=== PATIENT | male | born 1990 | race Caucasian/White ===

== ENCOUNTER 2024-01-03 17:01 | Inpatient (IN) | payer SELFPAY ==
[2024-01-03] VITALS (10 sets, daily range): BP systolic 128–174; BP diastolic 76–107; PULSE 87–94; RESP 18–20; TEMP 98.1
[~2024-01-03] VITALS: Ht 182.9 cm; Wt 130.0 kg
[2024-01-03] MEDS: LABETALOL HCL 5 MG/ML 20 ML VIAL IVP ONE ×3 (17:16→18:33)
[2024-01-03 17:35] LABS: EOSINOPHILS % (AUTO) 0.4 % (1.0-6.0); HEMATOCRIT 46.9 % (41-53); HEMOGLOBIN 15.4 g/dL (13.5-17.5); LYMPHOCYTES # (AUTO) 2.1 K/uL (1.0-4.8); LYMPHOCYTES % (AUTO) 18.9 % (22.0-44.0); MEAN CORPUSCULAR HEMOGLOBIN 26.7 pg (26.0-34.0); MEAN CORPUSCULAR HGB CONC 32.9 G/dL (31.0-37.0); MEAN CORPUSCULAR VOLUME 81 fL (80-100); MONOCYTES # (AUTO) 1.1 K/uL (0.1-1.0); MONOCYTES % (AUTO) 9.6 % (2.0-9.0); NEUTROPHILS # (AUTO) 7.9 K/uL (1.8-7.7); NEUTROPHILS % (AUTO) 70.1 % (40.0-70.0); PLATELET COUNT (AUTO) 274 K/uL (150-450); RED BLOOD CELL COUNT(AUTO) 5.79 MIL/uL (4.50-5.90); RED CELL DISTRIBUTION WIDTH 13.2 % (11.5-14.5); WHITE BLOOD COUNT (AUTO) 11.3 K/uL (4.5-11.0)
[2024-01-03 17:43] LABS: CREATININE 1.44 mg/dL (0.60-1.30); POTASSIUM 3.1 mmol/L (3.5-5.1)
[2024-01-03 17:48] LABS: PROTHROMBIN TIME 10.7 SEC (9.4-11.6)
[2024-01-03 17:52] LABS: ALCOHOL, BLOOD (SERUM) < 3 mg/dL (0-10)
[2024-01-03 17:55] LABS: LACTIC ACID 2.4 mmol/L (0.4-2.0)
[2024-01-03 17:56] LABS: ALBUMIN 3.9 g/dL (3.4-5.0); BILIRUBIN,TOTAL 0.8 mg/dL (0.1-1.0); TOTAL PROTEIN, SERUM 7.5 g/dL (6.4-8.2)
[2024-01-03 18:01] LABS: COVID AG,FIA SOURCE NASAL SWAB
[2024-01-03 18:11] LABS: TROPONIN I-HIGH SENSITIVITY 71 ng/L (<76)
[2024-01-03 18:23] LABS: SARS-COV2 (COVID) ANTIGEN,FIA Negative (Negative)
[2024-01-03] MEDS ORDERED: ACETAMINOPHEN 325 MG TABLET PO PRN (20:15)
[2024-01-03] MEDS ORDERED: POTASSIUM CHL 10 MEQ/WATER 50 ML IV PRN (20:15)
[2024-01-03] MEDS ORDERED: ONDANSETRON HCL 4 MG/2 ML VIAL IVP PRN (20:15)
[2024-01-03] MEDS ORDERED: MAGNESIUM SULFATE 2 GM/WATER 50 ML IV PRN (20:15)
[2024-01-03] MEDS ORDERED: MAGNESIUM OXIDE 400 MG TABLET PO PRN (20:15)
[2024-01-03] MEDS ORDERED: NiCARDipine HCL 25 MG in DEXTROSE 5%-WATER 240 ML IV PRN (20:15)
[2024-01-03] MEDS ORDERED: MAGNESIUM SULFATE 4 GM/WATER 100 ML IV PRN (20:15)
[2024-01-03] MEDS: DOCUSATE SODIUM 100 MG CAPSULE PO SCH (20:39)
[2024-01-03] MEDS: POTASSIUM CHLORIDE 20 MEQ ER TABLET PO PRN (20:43)
[2024-01-03] MEDS: NITROGLYCERIN 2% (1 GM=INCH) OINTMENT PACKET TP SCH (20:43)
[2024-01-03] MEDS: LABETALOL HCL 200 MG TABLET PO SCH (21:13)
[2024-01-03 21:29] LABS: TROPONIN I-HIGH SENSITIVITY 78 ng/L (<76)
[2024-01-03 22:33] LABS: APPEARANCE,URINE CLEAR (CLEAR); BILIRUBIN,URINE NEGATIVE (NEGATIVE); COLOR,URINE YELLOW (YELLOW); GLUCOSE, URINE (UA) NEGATIVE (NEGATIVE); KETONES,URINE NEGATIVE (NEGATIVE); LEUKOCYTE ESTERASE ,URINE NEGATIVE (NEGATIVE); NITRATE,URINE NEGATIVE (NEGATIVE); OCCULT BLOOD,URINE NEGATIVE (NEGATIVE); PROTEIN,URINE 300-600,SEE CONFIRM mg/dL (NEGATIVE); SPECIFIC GRAVITIY, URINE 1.024 (1.003-1.030); UROBILINOGEN,URINE <=1.0 mg/dL (<=1.0)
[2024-01-03 22:40] LABS: ALCOHOL, URINE DRUG SCREEN NEGATIVE (NEGATIVE); AMPHET/METH SCREEN,URINE NEGATIVE (NEGATIVE); BARBITURATE SCREEN, URINE NEGATIVE (NEGATIVE); BENZODIAZEPINES SCREEN,URINE NEGATIVE (NEGATIVE); CANNABINOID SCREEN,URINE NEGATIVE (NEGATIVE); COCAINE SCREEN,URINE NEGATIVE (NEGATIVE); METHADONE SCREEN, URINE NEGATIVE (NEGATIVE); OPIATE SCREEN,URINE NEGATIVE (NEGATIVE); PHENCYCLIDINE SCREEN,URINE NEGATIVE (NEGATIVE)
[2024-01-03 22:58] LABS: SULFOSALICYLIC ACID,URINE 3+ (Negative)
[2024-01-03 22:59] LABS: BACTERIA,URINE None Seen /HPF (None Seen); RBC,URINE None Seen /HPF (0-2); SQUAMOUS EPITHELIAL CELL,UR Few /LPF (None Seen); WBC,URINE 0-2 /HPF (0-5)
[2024-01-03 23:32] LABS: TROPONIN I-HIGH SENSITIVITY 57 ng/L (<76)
[2024-01-03 23:36] LABS: GLUCOMETER DEV NAME(LOC) 5S.1B; GLUCOSE,POINT OF CARE 121 MG/DL (70-110)
[2024-01-04] VITALS (13 sets, daily range): BP systolic 117–183; BP diastolic 77–119; PULSE 86–108; RESP 18–21; TEMP 97.9–98.1
[2024-01-04] MEDS: ATORVASTATIN CALCIUM 40 MG TABLET PO ONE (00:36)
[2024-01-04] MEDS: HEPARIN SODIUM,PORCINE 5,000 UNITS/ML VIAL SQ SCH (00:37)
[2024-01-04] MEDS ORDERED: SODIUM CHLORIDE 0.9% 250 ML IV ONE (01:24)
[2024-01-04] MEDS: CefTRIAXone 1 GM/DEXTROSE 50 ML IV SCH (01:37)
[2024-01-04] MEDS: AZITHROMYCIN 500 MG/NS 250 ML IV ONE (02:46)
[2024-01-04 07:14] LABS: BASOPHILS % (AUTO) 0.1 % (0.0-2.0); EOSINOPHILS % (AUTO) 0 % (1.0-6.0); HEMATOCRIT 41.3 % (41-53); HEMOGLOBIN 13.5 g/dL (13.5-17.5); LYMPHOCYTES # (AUTO) 1.1 K/uL (1.0-4.8); MEAN CORPUSCULAR HEMOGLOBIN 26.6 pg (26.0-34.0); MEAN CORPUSCULAR HGB CONC 32.7 G/dL (31.0-37.0); MEAN CORPUSCULAR VOLUME 81 fL (80-100); MONOCYTES % (AUTO) 6.1 % (2.0-9.0); NEUTROPHILS # (AUTO) 13.7 K/uL (1.8-7.7); PLATELET COUNT (AUTO) 249 K/uL (150-450); RED BLOOD CELL COUNT(AUTO) 5.07 MIL/uL (4.50-5.90); RED CELL DISTRIBUTION WIDTH 13.5 % (11.5-14.5); WHITE BLOOD COUNT (AUTO) 15.7 K/uL (4.5-11.0)
[2024-01-04 07:23] LABS: NEUTROPHILS % (AUTO) 86.8 % (40.0-70.0)
[2024-01-04 07:29] LABS: TROPONIN I-HIGH SENSITIVITY 43 ng/L (<76)
[2024-01-04 08:38] LABS: ANION GAP 9 mmol/L (8-16); CALCIUM, TOTAL 8.3 mg/dL (8.8-10.5); CARBON DIOXIDE 27 mmol/L (22-29); CHLORIDE 101 mmol/L (98-107); CREATININE 1.31 mg/dL (0.60-1.30); GLOMERULAR FILTR. RATE CALC > 60 mL/min (>60); GLUCOSE,RANDOM 131 mg/dL (70-110); POTASSIUM 3.7 mmol/L (3.5-5.1); SODIUM SERUM 137 mmol/L (136-145); UREA NITROGEN, BLOOD 19 mg/dL (7-18)
[2024-01-04] MEDS: ASPIRIN 81 MG CHEWABLE TABLET PO SCH (09:26)
[2024-01-04] MEDS: ATORVASTATIN CALCIUM 40 MG TABLET PO SCH (21:07)
[2024-01-04] MEDS: HydrALAZINE HCL 20 MG/ML VIAL IVP PRN (22:50)
[2024-01-05 00:22] VITALS: BP 149/87; PULSE 105; RESP 18; TEMP 97.9
[2024-01-05 04:38] VITALS: BP 150/98; PULSE 94; RESP 18; TEMP 97.8
[2024-01-05 07:11] LABS: HEMOGLOBIN A1C 5.7 % (3.8-5.6)
[2024-01-05 07:16] LABS: CHOL/HDL RATIO 4.1 (4.2-7.3)
[2024-01-05 08:00] VITALS: BP 180/110; PULSE 96; RESP 16; TEMP 98.3
[2024-01-05 08:06] LABS: HEPATITIS C AB (EIA) Non Reactive (Non Reactive)
[2024-01-05] MEDS: LOSARTAN POTASSIUM 25 MG TABLET PO SCH (08:29)
[2024-01-05] MEDS: AmLODIPine BESYLATE 5 MG TABLET PO SCH (08:29)
[2024-01-05] MEDS ORDERED: AmLODIPine BESYLATE 5 MG TABLET PO SCH (09:00)
[2024-01-05 09:30] VITALS: BP 150/101
[2024-01-05 12:00] VITALS: BP 149/97; PULSE 94; RESP 20; TEMP 97.4
[2024-01-05] MEDS ORDERED: AMLO-257 PO (13:16)
[2024-01-05] MEDS ORDERED: ATOR40TA71 PO (13:16)
[2024-01-05] MEDS ORDERED: LABE200T56 PO (13:16)
[2024-01-05] MEDS ORDERED: ASPI-1450 PO (13:16)
[2024-01-05] MEDS ORDERED: LOSA-417 PO (13:16)
== END 2024-01-05 15:30 | disposition home or self-care (01) | DRG 304 ==
LOC: EMS 17:01 → 5S 22:02
PROVIDERS: ADMIT Internal Medicine; ATTEND Internal Medicine
DX: I16.1 Hypertensive emergency (principal); J18.9 Pneumonia, unspecified organism; N17.9 Acute kidney failure, unspecified; E87.6 Hypokalemia; Z20.822 Contact with and (suspected) exposure to COVID-19; E66.9 Obesity, unspecified; I51.7 Cardiomegaly; N18.30 Chronic kidney disease, stage 3 unspecified; G90.8 Other disorders of autonomic nervous system; I12.9 Hypertensive chronic kidney disease with stage 1 through stage 4 chronic kidney disease, or unspecified chronic kidney disease; Z79.899 Other long term (current) drug therapy; Z68.38 Body mass index [BMI] 38.0-38.9, adult
CPT/HCPCS: 70450; 71045; 80048; 80053; 80061; 80307; 81001; 81002; 82550; 82962; 83036; 83605; 83690; 83735; 83880; 84132; 84484; 85025; 85610; 85730; 86803; 87040; 87340; 93005; 93306; 99291; G0378; G0480; J0360; J0456; J0696; J1644; J3480; J3490; J7050; J7060; 36415-L1; 36415-TC